=== PATIENT | male | born 1980 | race Two or more races ===

== ENCOUNTER 2016-07-21 13:04 | Emergency (ER) | payer OTHER ==
[2016-07-21 13:29] VITALS: BP 120/78; PULSE 104; TEMP 98.7; BMI 27.3
[2016-07-21] MEDS ORDERED: DEXAMETHASONE SOD PHOSPHATE 10 MG/1 ML VIAL IVPB ONE (13:47)
[2016-07-21 14:06] LABS: BASOPHIL 0.6 % (0-2.0); EOSINOPHIL 2.3 % (0-4.5); MCH 30.2 pg (25.7-33.7); MCHC 34.3 g/dl (32.0-35.9); MEAN PLT VOLUME 7.7 fl (7.5-11.1); NEUTROPHILS 68.7 % (42.8-82.8); PLATELET COUNT 324 K/MM3 (134-434); RDW 13.2 % (11.9-15.9); WHITE BLOOD COUNT 10.8 K/mm3 (4.0-10.0)
--- NOTE | 2016-07-21 14:06 | PDOC ---
[id number] 4d SORE THROAT Time Seen by Provider: 07/21/16 13:35 History Source: Patient Exam Limitations: No Limitations - History of Present Illness Initial Comments: 07/21/16 13:58 35 yr male with sore throat day 5 states started a Zpack today is day 3 and feels worse. Pain to the right side of throat more than left with diff swallowing. history of asthma. Pt denies allergies. Pt is able to speak clear sentences, non muffled voice. Past History - Past Medical History Allergies/Adverse Reactions: Allergies Allergy/AdvReac Type Severity Reaction Status Date / Time No Known Allergies Allergy Verified 07/21/16 13:25 Home Medications: Ambulatory Orders Amox-Tr/K Cl [Augmentin 875-125mg Tablet -] 1 tab PO BID #20 tablet 07/21/16 Prednisone [Deltasone -] 40 mg PO DAILY #10 tablet 07/21/16 Asthma: Yes - Psycho/Social/Smoking Cessation Hx Suicidal Ideation: No Smoking History: Never smoked Review of Systems - Review of Systems Able to Perform ROS?: Yes Is the patient limited [place] proficient: Yes Constitutional: No: Symptoms Reported HEENTM: Yes: Symptoms Reported *Physical Exam - Vital Signs Last Vital Signs Temp Pulse Resp BP Pulse Ox 98.7 F 104 H 19 120/78 98 07/21/16 13:25 07/21/16 13:25 07/21/16 13:25 07/21/16 13:25 07/21/16 13:25 - Physical Exam General Appearance: Yes: Nourished, Appropriately Dressed HEENT: positive: EOMI, MARY, Pharyngeal Erythema, Tonsillar Exudate, Tonsillar Erythema Neck: positive: Supple Respiratory/Chest: positive: Lungs Clear, Normal Breath Sounds. negative: Chest Tender Cardiovascular: positive: Regular Rhythm, Regular Rate Gastrointestinal/Abdominal: positive: Normal Bowel Sounds, Soft Musculoskeletal: positive: Normal Inspection Extremity: positive: Normal Capillary Refill, Normal Inspection, Normal Range of Motion Integumentary: positive: Normal Color, Dry, Warm Neurologic: positive: Fully Oriented, Alert, Normal Mood/Affect, Normal Response , Motor Strength 5/5 ED Treatment Course - LABORATORY CBC & Chemistry Diagram: 07/21/16 13:52 07/21/16 13:52 Medical Decision Making - Medical Decision Making 07/21/16 14:01 cc: sore throat gettign worse on day 3 of Zpack will give decadron IV 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 CT reviewed will have pt follow up with ENT tomorrow. case discussed with ENT. 07/21/16 17:23 [id number] interpret to translate the md inst. all questions asked and answered via photography intern. *DC/Admit/Observation/Transfer Diagnosis at time of Disposition: Pharyngitis Qualifiers: Pharyngitis/tonsillitis etiology: unspecified etiology Qualified Code(s): J02.9 - Acute pharyngitis, unspecified - Discharge Dispostion Disposition: HOME Condition at time of disposition: Fair - Prescriptions Prescriptions: Amox-Tr/K Cl [Augmentin 875-125mg Tablet -] 1 tab PO BID #20 tablet Prednisone [Deltasone -] 40 mg PO DAILY #10 tablet - Referrals Referrals: Una Altman MD [Primary Care Provider] - Pranav Hawk MD [Staff Physician] - - Patient Instructions Additional Instructions: follow with the ENT doctor in 1-2 days garlge with warm salt water 4-5 times a day soft foods, room temperature foods take the medications as prescribed Return if you are unable to open your mouth, speak or swallow secretions
[2016-07-21] MEDS ORDERED: DEXAMETHASONE SOD PHOSPHATE 10 MG/1 ML VIAL ONE (14:30)
[2016-07-21 14:36] LABS: ALBUMIN 4.1 g/dl (3.4-5.0); ANION GAP 8 (8-16); CALCIUM 9.6 mg/dL (8.5-10.1); CO2 28 mmol/L (21-32); GLUCOSE,RANDOM 136 mg/dL (74-106); SGOT/AST 11 U/L (15-37); SGPT/ALT 30 U/L (12-78)
[2016-07-21 14:39] LABS: ALK PHOS 80 U/L (45-117); BILIRUBIN,TOTAL 0.6 mg/dL (0.2-1.0); TOT PROT 7.9 g/dl (6.4-8.2)
[2016-07-21] MEDS ORDERED: KETOROLAC TROMETHAMINE 15 MG/ML VIAL IVPUSH ONE (15:04)
[2016-07-21] MEDS ORDERED: CLINDAMYCIN 600MG PREMIX IVPB 50 ML IVPB ONE ×2 (15:04→15:12)
[2016-07-21] MEDS ORDERED: KETOROLAC TROMETHAMINE 15 MG/ML VIAL ONE (15:56)
[2016-07-21] MEDS ORDERED: SODIUM CHLORIDE 500 ML IV STA (16:26)
== END 2016-07-21 17:44 | disposition home or self-care (01) ==
LOC: JERFT 13:04
PROC: 3E0337Z Introduction of Electrolytic and Water Balance Substance into Peripheral Vein, Percutaneous Approach (ICD-10-PCS; principal; 2016-07-21)
PROC: 3E03329 Introduction of Other Anti-infective into Peripheral Vein, Percutaneous Approach (ICD-10-PCS; 2016-07-21)
PROC: 3E0333Z Introduction of Anti-inflammatory into Peripheral Vein, Percutaneous Approach (ICD-10-PCS; 2016-07-21)
DX: J02.9 Acute pharyngitis, unspecified (principal)
CPT/HCPCS: 36415; 70491-TC; 80053; 85025; 86308; 87070; 87430; 99281-25

== ENCOUNTER 2018-10-01 16:54 | Emergency (ER) | payer SELFPAY ==
[2018-10-01 17:43] VITALS: BMI 26.6
--- NOTE | 2018-10-01 20:20 | PDOC ---
History of Present Illness - General Chief Complaint: Respiratory Stated Complaint: THROGHT PROBLEM Time Seen by Provider: 10/01/18 18:08 History Source: Patient - History of Present Illness Initial Comments: 10/02/18 00:20 38-year-old male complaining of throat pain with difficulty swallowing for the last 4 days. Patient reports slight chills. He denies fever, nausea, vomiting, abdominal pain. Patient is noted to have a hot potato voice no drooling. Past History - Past Medical History Allergies/Adverse Reactions: Allergies Allergy/AdvReac Type Severity Reaction Status Date / Time No Known Allergies Allergy Verified 10/01/18 17:40 Home Medications: Ambulatory Orders Ibuprofen [Motrin -] 400 mg PO QID 10/01/18 Bacillus Coagulans [Probiotic] 1 each PO BID #60 capsule. 10/02/18 Clindamycin [Cleocin -] 300 mg PO TID #30 capsule 10/02/18 Ibuprofen 600 mg PO QID PRN #20 tablet 10/02/18 Asthma: Yes - Suicide/Smoking/Psychosocial Hx Smoking History: Never smoked Review of Systems - Review of Systems Able to Perform ROS?: Yes Is the patient limited [place] Sor[place] proficient: No Constitutional: Yes: Fever HEENTM: Yes: Throat Pain, Throat Swelling, Difficulty Swallowing Respiratory: No: Symptoms reported, See HPI, Cough, Orthopnea, Shortness of Breath, SOB with Exertion, SOB at Rest, Stridor, Wheezing, Productive cough, Hemoptysis, Other *Physical Exam - Vital Signs Last Vital Signs Temp Pulse Resp BP Pulse Ox 99.3 F 93 H 18 130/73 100 10/01/18 17:41 10/01/18 17:41 10/01/18 17:41 10/01/18 17:41 10/01/18 17:41 - Physical Exam General Appearance: Yes: Appropriately Dressed HEENT: positive: Other (no trismus, b/l tonsillar erythema) Neck: positive: Lymphadenopathy (R), Lymphadenopathy (L) Respiratory/Chest: positive: Lungs Clear, Normal Breath Sounds Cardiovascular: positive: Regular Rhythm, Regular Rate Gastrointestinal/Abdominal: positive: Normal Bowel Sounds Musculoskeletal: positive: Normal Inspection Extremity: positive: Normal Capillary Refill ED Treatment Course - LABORATORY CBC & Chemistry Diagram: 10/01/18 20:43 10/01/18 20:43 Progress Note - Progress Note Progress Note: A: strpe pharyngitis; tonsillitis P: IVF cbc cmp pain control Medical Decision Making - Medical Decision Making 10/02/18 00:47 CT soft tissue neck Intraorbital visualized intracranial contents are normal. There is bilateral tonsillar edema, worse on the right, consistent with tonsillitis but no discrete abscess. Normal epiglottis and vocal cords. No retropharyngeal edema. Normal salivary glands and thyroid gland. Lung apices are clear. Left maxillary sinus air-fluid level and mucosal thickening likely represents sinusitis the other paranasal sinuses and mastoid air cells are well aerated. IMPRESSION: Tonsillitis without abscess. Left maxillary sinusitis. *DC/Admit/Observation/Transfer Diagnosis at time of Disposition: Strep pharyngitis, Tonsillitis - Discharge Dispostion Disposition: HOME - Prescriptions Prescriptions: Bacillus Coagulans [Probiotic] 1 each PO BID #60 capsule.dr Ruiz [Cleocin -] 300 mg PO TID #30 capsule Ibuprofen 600 mg PO QID PRN #20 tablet PRN Reason: Pain - Referrals Referrals: Naa Gayle MD [Primary Care Provider] - Casper Salazar MD [Staff Physician] - Call tomorrow (as soon as possible. ) - Patient Instructions Printed Discharge Instructions: Sore Throat Additional Instructions: gargle with warm salty water take ibuprofen every 6 hours as needed for pain take Tylenol every 4 hours as needed for pain throw away toothbrush in 3-4 days do not share cups or utensil with other Take Clindamycin prescribed follow up with your doctor as soon as possible. Additional Instructions: Please call your personal physician to report your Emergency Department visit and to report your progress, if any. If there is no improvement in symptoms in 2 days call your physician. Return to the Emergency Department for any worsening symptoms. - Post Discharge Activity Forms/Work/School Notes: Back to Work
[2018-10-01] MEDS ORDERED: SODIUM CHLORIDE 1,000 ML IV STA (20:21)
[2018-10-01] MEDS ORDERED: KETOROLAC TROMETHAMINE 30 MG/1 ML VIAL IVPUSH ONE (20:21)
[2018-10-01] MEDS ORDERED: DEXAMETHASONE SOD PHOSPHATE 10 MG/1 ML VIAL IM ONE (20:21)
[2018-10-01] MEDS ORDERED: KETOROLAC TROMETHAMINE 30 MG/1 ML VIAL ONE (20:42)
[2018-10-01] MEDS ORDERED: DEXAMETHASONE SOD PHOSPHATE 10 MG/1 ML VIAL ONE (20:42)
[2018-10-01 22:04] LABS: BASO % 0.2 % (0-2.0); EOS % 0.1 % (0-4.5); HEMATOCRIT 41.7 % (35.4-49); HEMOGLOBIN 13.8 GM/dL (11.7-16.9); LYMPH % 8.8 % (8-40); MCH 29.6 pg (25.7-33.7); MCHC 33.1 g/dl (32.0-35.9); MEAN CELL VOLUME 89.6 fl (80-96); MEAN PLT VOLUME 8.5 fl (7.5-11.1); MONO % 8.2 % (3.8-10.2); NEUT % 82.7 % (42.8-82.8); PLATELET COUNT 325 K/MM3 (134-434); RBC 4.65 M/mm3 (4.00-5.60); RDW 13.4 % (11.9-15.9); WHITE BLOOD COUNT 14.8 K/mm3 (4.0-10.0)
[2018-10-01 22:34] LABS: ALK PHOS 96 U/L (45-117); ANION GAP 9 MMOL/L (8-16); BILIRUBIN,TOTAL 0.8 mg/dL (0.2-1); BLOOD UREA NITROGEN 11 mg/dL (7-18); CALCIUM 9.4 mg/dL (8.5-10.1); CHLORIDE 104 mmol/L (98-107); CO2 27 mmol/L (21-32); GLUCOSE,RANDOM 85 mg/dL (74-106); LIPASE 213 U/L (73-393); POTASSIUM 4.2 mmol/L (3.5-5.1); SGOT/AST 18 U/L (15-37); SGPT/ALT 27 U/L (13-61); SODIUM 140 mmol/L (136-145); TOT PROT 8.2 g/dl (6.4-8.2)
[2018-10-02] MEDS ORDERED: CLINDAMYCIN 600MG PREMIX IVPB 600 MG/50 ML BAG IVPB ONE ×2 (00:22→01:13)
[2018-10-02] MEDS ORDERED: ACETAMINOPHEN 1000 MG/100 ML VIAL (NON FORMULARY) IVPB ONE (00:22)
[2018-10-02] MEDS ORDERED: ACETAMINOPHEN INJECTION 100 ML IVPB ONE (01:12)
[2018-10-02 01:13] VITALS: BP 126/88; PULSE 94; TEMP 98.6
[2018-10-03 18:12] LABS: EPSTEIN BARR ANTIBODY IgM <36.0 U/mL (0.0-35.9)
== END 2018-10-02 02:27 | disposition home or self-care (01) ==
LOC: JER 16:54 → JERFT 16:54 → JER 10-02 02:27
PROC: 3E0233Z Introduction of Anti-inflammatory into Muscle, Percutaneous Approach (ICD-10-PCS; principal; 2018-10-01)
PROC: 3E0337Z Introduction of Electrolytic and Water Balance Substance into Peripheral Vein, Percutaneous Approach (ICD-10-PCS; 2018-10-01)
PROC: 3E03329 Introduction of Other Anti-infective into Peripheral Vein, Percutaneous Approach (ICD-10-PCS; 2018-10-01)
PROC: 3E033NZ Introduction of Analgesics, Hypnotics, Sedatives into Peripheral Vein, Percutaneous Approach (ICD-10-PCS; 2018-10-01)
PROC: 3E0333Z Introduction of Anti-inflammatory into Peripheral Vein, Percutaneous Approach (ICD-10-PCS; 2018-10-01)
DX: J02.0 Streptococcal pharyngitis (principal); B95.0 Streptococcus, group A, as the cause of diseases classified elsewhere
CPT/HCPCS: 36415; 70491-TC; 80053; 83690; 85025; 86664; 86665; 87880; 99282-25; J0131; J1100; J7030

== ENCOUNTER 2018-11-05 10:33 | Emergency (ER) | payer OTHER ==
[2018-11-05 10:58] VITALS: BP 138/88; PULSE 74; TEMP 97.9; BMI 25.0
--- NOTE | 2018-11-05 11:54 | PDOC ---
History of Present Illness - General Chief Complaint: Injury Stated Complaint: RT WRIST INJURY Time Seen by Provider: 11/05/18 11:36 - History of Present Illness Initial Comments: 11/05/18 11:45 38-year-old male without comorbidities presents for evaluation of right distal forearm pain. He states he slipped off a ladder did not hit his head and injured his right arm. This occurred yesterday. Past History - Past Medical History Allergies/Adverse Reactions: Allergies Allergy/AdvReac Type Severity Reaction Status Date / Time No Known Allergies Allergy Verified 11/05/18 10:55 Home Medications: Ambulatory Orders NK [No Known Home Medication] 11/05/18 Asthma: Yes COPD: No - Immunization History Immunization Up to Date: No - Suicide/Smoking/Psychosocial Hx Smoking History: Never smoked Hx Alcohol Use: No Drug/Substance Use Hx: No Review of Systems - Review of Systems Musculoskeletal: Yes: See HPI *Physical Exam - Vital Signs Last Vital Signs Temp Pulse Resp BP Pulse Ox 97.9 F 74 18 138/88 98 11/05/18 10:55 11/05/18 10:55 11/05/18 10:55 11/05/18 10:55 11/05/18 10:55 - Physical Exam Comments: 11/05/18 11:46 Right wrist and forearm skin color and temperature are normal. There is no tenderness about the elbow. There is tenderness about the distal shaft of the ulna no tenderness about the distal radius ulna styloid or scaphoid. No gross sensorimotor deficits neurovascularly intact elbow range of motion is decreased in flexion and extension and he is unable to supinate and pronate. ED Treatment Course - RADIOLOGY Radiology Studies Ordered: Category Date Time Status FOREARM- RIGHT [RAD] Stat Radiology 11/05/18 11:38 Taken Medical Decision Making - Medical Decision Making 11/05/18 11:54 X-rays of the right forearm show a distal ulna fracture. Sugar tong splint was applied patient neurovascularly intact post-splint application. Orthopedic surgery follow-up was recommended. *DC/Admit/Observation/Transfer Diagnosis at time of Disposition: Ulna distal fracture - Discharge Dispostion Disposition: HOME Condition at time of disposition: Stable Decision to Admit order: No - Referrals Referrals: Jun Leroy DO [Staff Physician] - - Patient Instructions Printed Discharge Instructions: Forearm Fracture, DI for Forearm Fracture Additional Instructions: Please keep the splint in place until seen by orthopedic surgery. Return to the emergency room for worsening symptoms. Tylenol and Motrin as directed for pain. Follow-up with orthopedic surgery in 1-2 days without fail. - Post Discharge Activity
== END 2018-11-05 12:09 | disposition home or self-care (01) ==
LOC: JERFT 10:33
PROC: 2W3CX1Z Immobilization of Right Lower Arm using Splint (ICD-10-PCS; principal; 2018-11-05)
DX: S52.601A Unspecified fracture of lower end of right ulna, initial encounter for closed fracture (principal); W11.XXXA Fall on and from ladder, initial encounter; Y93.89 Activity, other specified; Y92.89 Other specified places as the place of occurrence of the external cause
CPT/HCPCS: 73090-TC-RT-FY; 99281-25

== ENCOUNTER 2020-01-14 16:09 | Emergency (ER) | payer OTHER ==
--- NOTE | 2020-01-14 16:17 | PDOC ---
Rapid Medical Evaluation Time Seen by Provider: 01/14/20 16:15 Medical Evaluation: Allergies Allergy/AdvReac Type Severity Reaction Status Date / Time No Known Allergies Allergy Verified 11/05/18 10:55 01/14/20 16:16 CC: cut by metal box, states tdap was around 3 years ago, denies radiation of pain Exam: noted 4 cm lac to lat aspect of left hand at 5th phalange Plan: ft Discharge Disposition - Diagnosis Laceration - Referrals - Patient Instructions - Post Discharge Activity
[2020-01-14] MEDS ORDERED: DIPHTH,PERTUSS(ACELL),TET 0.5 ML DISP.SYRIN IM ONE ×2 (16:41→16:57)
[2020-01-14 16:45] VITALS: BP 126/68; PULSE 79; TEMP 98.5; BMI 28.8
--- NOTE | 2020-01-14 17:03 | PDOC ---
History of Present Illness - General Chief Complaint: Laceration Stated Complaint: L HAND LACERATION Time Seen by Provider: 01/14/20 16:15 - History of Present Illness Initial Comments: 01/14/20 16:58 39-year-old male without comorbidities not current on his tetanus presents for evaluation of a laceration of his left hand. Patient was using a steam box tender when he sustained a laceration on his left hand. He applied a pressure dressing and came to the emergency room. Past History - Medical History Allergies/Adverse Reactions: Allergies Allergy/AdvReac Type Severity Reaction Status Date / Time No Known Allergies Allergy Verified 01/14/20 16:19 Home Medications: Ambulatory Orders NK [No Known Home Medication] 11/05/18 Asthma: Yes COPD: No - Immunization History Immunization Up to Date: No - Psycho-Social/Smoking History Smoking History: Never smoked Information on smoking cessation initiated: No - Substance Abuse Hx (Audit-C & DAST Scrn) How often the patient has a drink containing alcohol: Never Score: In Men: 4 or > Positive; In Women: 3 or > Positive: 0 Screen Result (Pos requires Nsg. Audit-10AR): Negative Review of Systems - Review of Systems Integumentary: Yes: See HPI *Physical Exam - Vital Signs Last Vital Signs Temp Pulse Resp BP Pulse Ox 98.5 F 79 126 H 126/68 99 01/14/20 16:17 01/14/20 16:17 01/14/20 16:17 01/14/20 16:17 01/14/20 16:17 - Physical Exam 01/14/20 16:59 There is a linear laceration on the dorsum aspect of the left hand. The laceration extends ulnarly around the dorsum of the left hand to the radial aspect of the fifth MCP J exposing retinaculum of the extensors. Extensor tendon function is well maintained 5 out of 5 strength FDS and FDP work i ndependently. There are no gross sensorimotor deficits. Neurovascularly intact. Full range of motion of all the fingers. The remainder of the hand is normal. ED Treatment Course - Medications Given in the ED: ED Medications Discontinued Medications Generic Name Dose Route Start Last Admin Trade Name Freq PRN Reason Stop Dose Admin Diphtheria/Tetanus/Acell Pertussis 0.5 ml 01/14/20 16:41 07/21/20 16:57 Boostrix - IM 01/14/20 16:42 0.5 ml .ONCE ONE Administration Medical Decision Making - Medical Decision Making 01/14/20 17:01 The wound was anesthetized with 1% lidocaine without epinephrine. Explored to its base in a bloodless field without any identification of foreign body. Copiously irrigated with normal saline. Edges approximated using 4 simple interrupted sutures using 4-0 Prolene . Dry sterile dressing was placed. 01/14/20 17:03 I have reviewed the pathophysiology with the patient. They are in agreement with the treatment plan all questions were answered to their satisfaction. Understanding for follow-up without fail was also conveyed to the patient. Again they are in agreement. Discharge - Discharge Information Problems reviewed: Yes Clinical Impression/Diagnosis: Laceration Condition: Stable Disposition: HOME - Admission No - Follow up/Referral Referrals: Guero Otero MD [Staff Physician] - - Patient Discharge Instructions Additional Instructions: Please keep the dressing on for the next 48 hours. After 48 hours you may remove the dressing wash the area with soap and water and leave it open to air. If you must work please cover the area with a dry sterile dressing such as a large Band-Aid. Keep the area open to air as much as possible. Return to the emergency room for any worsening symptoms or concern for infection such as redness, swelling, increasing pain, or drainage. Other than that sutures out in 10 days Tylenol and Motrin as directed for pain. Your tetanus shot was updated today. Without fail follow-up with orthopedic hand surgery in 2 to 3 days for further evaluation and treatment options. Sutures out in 10 days. Return to the emergency room in 48 hours for a wound check. - Post Discharge Activity
== END 2020-01-14 17:10 | disposition home or self-care (01) ==
LOC: JERFT 16:09
PROC: 0HQGXZZ Repair Left Hand Skin, External Approach (ICD-10-PCS; principal; 2020-01-14)
PROC: 3E0234Z Introduction of Serum, Toxoid and Vaccine into Muscle, Percutaneous Approach (ICD-10-PCS; principal; 2020-01-14)
DX: S61.412A Laceration without foreign body of left hand, initial encounter (principal); W26.8XXA Contact with other sharp object(s), not elsewhere classified, initial encounter
CPT/HCPCS: 12001-25; 90471; 90715; 99282-25

== ENCOUNTER 2020-01-27 14:35 | Emergency (ER) | payer OTHER ==
[2020-01-27 14:42] VITALS: BP 118/73; PULSE 90; TEMP 97.8; BMI 28.5
--- NOTE | 2020-01-27 15:03 | PDOC ---
History of Present Illness - General Chief Complaint: Suture/Staple Removal(Here) Stated Complaint: REMOVE STITCHES Time Seen by Provider: 01/27/20 14:39 History Source: Patient Exam Limitations: No Limitations - History of Present Illness Initial Comments: 01/27/20 15:03 39-year-old male presents the ED for suture removal of laceration sustained approximately 1 week ago. Patient denies erythema or signs of infection. Patient is complaining of mild numbness around the wound but states that he has sensation distal. Pt otherwise denies: fevers, chills, syncope, lightheaded ness, dizziness, headaches, neck pain, chest pain, shortness of breath, palpitations, back pain, abdominal pain, nausea, vomiting, diarrhea, constipation. Past History - Medical History Allergies/Adverse Reactions: Allergies Allergy/AdvReac Type Severity Reaction Status Date / Time No Known Allergies Allergy Verified 01/14/20 16:19 Home Medications: Ambulatory Orders NK [No Known Home Medication] 11/05/18 Asthma: Yes COPD: No - Immunization History Immunization Up to Date: No - Psycho-Social/Smoking History Smoking History: Never smoked Information on smoking cessation initiated: No - Substance Abuse Hx (Audit-C & DAST Scrn) How often the patient has a drink containing alcohol: Never Score: In Men: 4 or > Positive; In Women: 3 or > Positive: 0 Screen Result (Pos requires Nsg. Audit-10AR): Negative *Physical Exam - Vital Signs Last Vital Signs Temp Pulse Resp BP Pulse Ox 97.8 F 90 17 118/73 99 01/27/20 14:39 01/27/20 14:39 01/27/20 14:39 01/27/20 14:39 01/27/20 14:39 - Physical Exam 01/27/20 15:04 Gen: AAOx 3, no acute distress, comfortable, no signs of respiratory distress HENT: atraumatic, normocephalic with no laceration or contusion. Nasal mucosa without erythema. Oropharynx without erythema or exudates. Mucous membranes moist. EYES: PERRL, EOM intact, conjunctiva pink NECK: supple; trachea midline; no JVD, no lymphadenopathy, or thyromegaly CV: RRR no murmurs, gallops, or rubs. CHEST: CTA b/l no wheezing, rales or rhonchi ABD: +BS/ND. no TTP; soft, no rebound, no guarding EXTREMITY: no cyanosis or erythema. 2+ dorsalis pedis, posterior tibial, and radial pulse. No pedal edema; no calf swelling or tenderness R hand: well healing 5cm laceration to dorsal medial aspect of 5th metatarsal FROM <2 sec cap refill SKIN: no rash, warm and dry, no diaphoresis HEME: no purpura or ecchymosis NEURO: normal speech, CN II-XII intact, sensation intact, normal gait, no cerebellar deficits MS: 5/5 strength in all extremities, FROM intact in all extremities. Medical Decision Making - Medical Decision Making 01/27/20 15:05 -year-old male here for suture removal Vital signs stable 4 sutures removed no complications pulse motor sensation intact Supportive care instructions explained and given to pt. Reasons to return emergently to ER explained and given. Importance of follow up with PMD and other specialists as indicated stressed to pt. Pt verbalized understanding of instructions. Pt to follow up with PMD in 2 days. Discharge - Discharge Information Problems reviewed: Yes Clinical Impression/Diagnosis: Laceration Condition: Stable Disposition: HOME - Follow up/Referral Referrals: Guero Otero MD [Staff Physician] - - Patient Discharge Instructions Patient Printed Discharge Instructions: DI for Suture Removal - Post Discharge Activity Work/Back to School Note: Back to Work
== END 2020-01-27 16:10 | disposition home or self-care (01) ==
LOC: JERFT 14:35
DX: Z48.02 Encounter for removal of sutures (principal)
CPT/HCPCS: 99281-25

== ENCOUNTER 2020-10-05 14:52 | Emergency (ER) | payer OTHER ==
[2020-10-05] MEDS ORDERED: ACETAMINOPHEN 325 MG TABLET (FP) PO ONE (16:36)
[2020-10-05] MEDS ORDERED: ACETAMINOPHEN 325 MG TABLET (FP) ONE (17:02)
[2020-10-05 17:06] VITALS: BP 135/91; PULSE 87; TEMP 97.5; BMI 29.6
== END 2020-10-05 17:10 | disposition home or self-care (01) ==
LOC: JER 14:52
DX: M79.602 Pain in left arm (principal); R51.9 Headache, unspecified
CPT/HCPCS: 70450-TC; 99284-25

== ENCOUNTER 2021-05-04 04:45 | Day surgery (SDC) | payer OTHER ==
[2021-04-29 16:51] VITALS: BMI 29.7
[2021-05-04 08:45] VITALS: TEMP 98
[2021-05-04 09:20] VITALS: BP 128/71; PULSE 76
== END 2021-05-04 09:20 | disposition home or self-care (01) ==
LOC: JASU-ENDO 04:45
PROVIDERS: ATTEND Internal Medicine Gastroenterology
PROC: 0DJD8ZZ Inspection of Lower Intestinal Tract, Via Natural or Artificial Opening Endoscopic (ICD-10-PCS; principal; 2021-05-04 08:30)
DX: K62.5 Hemorrhage of anus and rectum (principal); K64.8 Other hemorrhoids

== ENCOUNTER 2021-07-22 04:21 | Day surgery (SDC) | payer OTHER ==
[2021-07-19 14:36] VITALS: BMI 29.3
[2021-07-22] MEDS ORDERED: KETAMINE HCL 200 MG/20 ML VIAL ONE (07:15)
[2021-07-22 09:16] VITALS: BP 124/74; PULSE 72; TEMP 98
== END 2021-07-22 09:30 | disposition home or self-care (01) ==
LOC: JASU-ENDO 04:21
PROVIDERS: ATTEND Internal Medicine Gastroenterology
PROC: 0DB78ZX Excision of Stomach, Pylorus, Via Natural or Artificial Opening Endoscopic, Diagnostic (ICD-10-PCS; 2021-07-22)
PROC: 0DB38ZX Excision of Lower Esophagus, Via Natural or Artificial Opening Endoscopic, Diagnostic (ICD-10-PCS; principal; 2021-07-22 09:45)
DX: K21.00 Gastro-esophageal reflux disease with esophagitis, without bleeding (principal); K29.50 Unspecified chronic gastritis without bleeding
CPT/HCPCS: 88305-TC; 88342-TC